=== PATIENT | female | born 2000 | race Caucasian/White ===

== ENCOUNTER → 2025-05-19 08:08 | Outpatient (REF) | payer OTHER, SELFPAY | LOC: RCS 08:08 | PROVIDERS: ATTENDING PHYSICIAN Family Medicine | DX: R42 Dizziness and giddiness (principal) | CPT/HCPCS: 93225; 93226 ==

== ENCOUNTER → 2025-06-02 17:35 | Outpatient (REF) | payer OTHER, SELFPAY | LOC: MRI 17:35 | PROVIDERS: ATTENDING PHYSICIAN Family Medicine | DX: R42 Dizziness and giddiness (principal) | CPT/HCPCS: 70551 ==